=== PATIENT | female | born 1950 | race Caucasian/White ===

== ENCOUNTER 2017-01-05 16:43 | Emergency (ER) | payer OTHER, BC ==
--- NOTE | 2017-01-05 16:46 | PDOC ---
History of Present Illness <Verenice Rahman - Last Filed: 01/05/17 18:27> - History of Present Illness Initial Comments: 01/05/17 16:52 The patient is a 66 year old female, with a significant past medical history of TIA (1999, on Plavix), anxiety (on ativan), and hypercholesterolemia, who presents to the emergency department with pain to her left hand/wrist s/p mechanical fall and excessive bleeding from her mouth s/p oral surgery this afternoon. The patient states she tripped and fell earlier today. She reports reaching out to stop her fall, however, landed on her face, causing her to lose her two front teeth. The patient states she injured her left wrist during the fall, but was sent immediately for oral surgery to have numerous stitches placed into her mouth. She reports going to her PCP, Dr. Corcoran, after her oral surgery to have her hand evaluated, but she was referred to the ED to have xrays done. The patient reports her pain is a 6/10 in severity. She denies any other complaints. She denies chest pain, shortness of breath, headache and dizziness. She denies fever, chills, nausea, vomit, diarrhea and constipation. She denies dysuria, frequency, urgency and hematuria. Allergies: NKDA PCP - Dr. Jeison Corcoran <Kari Ding - Last Filed: 01/05/17 19:02> <Arcelia Hernandez - Last Filed: 01/05/17 19:17> - General Chief Complaint: Injury Stated Complaint: FALL Time Seen by Provider: 01/05/17 16:45 Past History - Past Medical History HTN: Yes - Psycho/Social/Smoking Cessation Hx Anxiety: No Suicidal Ideation: No Smoking History: Never smoked Have you smoked in the past 12 months: No Hx Alcohol Use: No Drug/Substance Use Hx: No Substance Use Type: None <Verenice Rahman - Last Filed: 01/05/17 18:27> <Kari Ding - Last Filed: 01/05/17 19:02> <Arcelia Hernandez - Last Filed: 01/05/17 19:17> - Past Medical History Allergies/Adverse Reactions: Allergies Allergy/AdvReac Type Severity Reaction Status Date / Time No Known Allergies Allergy Verified 01/05/17 17:10 Home Medications: Ambulatory Orders Cholecalciferol (Vitamin D3) [Vitamin D] 5,000 unit PO DAILY 02/16/16 Lorazepam [Ativan] 0.5 mg PO PRN 02/16/16 Metoprolol Succinate [Toprol Xl] 50 mg PO HS 02/16/16 Review of Systems - Review of Systems Able to Perform ROS?: Yes Comments:: 01/05/17 16:56 GENERAL/CONSTITUTIONAL: No fever or chills. No weakness. HEAD, EYES, EARS, NOSE AND THROAT: (+) oral bleeding from suture site. No change in vision. No ear pain or discharge. No sore throat. CARDIOVASCULAR: No chest pain or shortness of breath. RESPIRATORY: No cough, wheezing, or hemoptysis. GASTROINTESTINAL: No nausea, vomiting, diarrhea or constipation. GENITOURINARY: No dysuria, frequency, or change in urination. MUSCULOSKELETAL: (+) Left hand and wrist pain. No muscle swelling or pain. No neck or back pain. SKIN: No rash NEUROLOGIC: No headache, vertigo, loss of consciousness, or change in strength/ sensation. ENDOCRINE: No increased thirst. No abnormal weight change. HEMATOLOGIC/LYMPHATIC: No anemia, easy bleeding, or history of blood clots. ALLERGIC/IMMUNOLOGIC: No hives or skin allergy. <Kari Ding - Last Filed: 01/05/17 19:02> *Physical Exam - Physical Exam Comments: GENERAL: Awake, alert, and fully oriented, in no acute distress HEAD: +Bleeding from teeth extraction sites. +Laceration to the mucosal surface of the upper lip, with sutures in place. EYES: PERRLA, EOMI, sclera anicteric, conjunctiva clear ENT: Auricles normal inspection, hearing grossly normal, nares patent, oropharynx clear without exudates. Moist mucosa NECK: Normal ROM, supple, no lymphadenopathy, JVD, or masses LUNGS: Breath sounds equal, clear to auscultation bilaterally. No wheezes, and no crackles HEART: Regular rate and rhythm, normal S1 and S2, no murmurs, rubs or gallops ABDOMEN: Soft, nontender, normoactive bowel sounds. No guarding, no rebound. No masses EXTREMITIES: L hand with ecchymosis and tenderness over the 4th and 5th metacarpals. Remainder of extremities with normal range of motion, no edema. No clubbing or cyanosis. No cords, erythema, or tenderness NEUROLOGICAL: Cranial nerves II through XII grossly intact. Normal speech, normal gait SKIN: Warm, Dry, normal turgor, no rashes or lesions noted. <Verenice Rahman - Last Filed: 01/05/17 18:27> - Vital Signs Last Vital Signs Temp Pulse Resp BP Pulse Ox 98.5 F 76 20 106/74 100 01/05/17 16:45 01/05/17 18:13 01/05/17 18:13 01/05/17 18:29 01/05/17 18:13 <Arcelia Hernandez - Last Filed: 01/05/17 19:17> ED Treatment Course - RADIOLOGY Radiograph Interpretation: 01/05/17 19:02 Left RAD/Hand Xray was read by Dr. Sabillon at 18:38 Impression Osteoarthritic changes, without gross evidence of a fracture or dislocation <Kari Ding - Last Filed: 01/05/17 19:02> - Medications Given in the ED: ED Medications Discontinued Medications Generic Name Dose Route Start Last Admin Trade Name Jose J PRN Reason Stop Dose Admin Ondansetron HCl 4 mg 01/05/17 18:22 01/05/17 19:01 Zofran Injection IVPUSH 01/05/17 18:23 Not Given ONCE ONE Ondansetron HCl 4 mg 01/05/17 18:09 01/05/17 18:28 Zofran Injection IVPUSH 01/05/17 18:10 4 mg ONCE ONE Administration Tramadol HCl 50 mg 01/05/17 16:54 01/05/17 17:01 Ultram - PO 01/05/17 16:55 50 mg ONCE ONE Administration <Arcelia Hernandez - Last Filed: 01/05/17 19:17> Medical Decision Making - Medical Decision Making 01/05/17 18:23 Late entry. At bedside to reassess. Bleeding has subsided significantly, but patient is now with a large clot at the site of the tooth extractions. We discussed leaving it in place, which may dislodge if she attempts to eat anything, or removing it and placing surgicel, then pressure to stop the bleeding. Patient opted to remove clot and place surgicel. As I was preparing to do this, patient suddenly became pale, diaphoretic, and nauseous. Vomited blood-tinged phlegm (consistent with having just swallowed blood from her teeth) , small amount. IV was placed, zofran and IVF were started. Initial BP mildly hypotensive 100s/60s. Improved rapidly, BP currently 130s/90s. I was subsequently able to remove the large clot and replace with surgicel, place gauze. Patient currently biting on gauze for pressure. Will cont to monitor. <Verenice Rahman - Last Filed: 01/05/17 18:27> - Medical Decision Making 01/05/17 17:10 Dr. Corcoran was called upon patient arrival for a doctor to doctor consult regarding this patient. The patient's history and case was discussed. <Kari Ding - Last Filed: 01/05/17 19:02> *DC/Admit/Observation/Transfer - Discharge Dispostion Admit: No <Verenice Rahman - Last Filed: 01/05/17 18:27> - Attestations Scribe Attestion: 01/05/17 16:57 Documentation prepared by Kari Ding, acting as medical receptionist for Verenice Rahman MD <Kari Ding - Last Filed: 01/05/17 19:02> <Arcelia Hernandez - Last Filed: 01/05/17 19:17> Diagnosis at time of Disposition: Surgical wound hemorrhage after dental procedure Traumatic hematoma of left hand Qualifiers: Encounter type: initial encounter Qualified Code(s): S60.222A - Contusion of left hand, initial encounter - Discharge Dispostion Condition at time of disposition: Stable - Patient Instructions Printed Discharge Instructions: DI on Tooth Extraction, DI for Post-Surgical Bleeding Additional Instructions: LEAVE THE SURGICEL IN PLACE. DO NOT ATTEMPT TO REMOVE IT. IF THE BLEEDING STARTS AGAIN, PLACE A ROLLED PIECE OF GAUZE AND BITE DOWN ON IT. IF THIS DOES NOT WORK, RETURN TO THE EMERGENCY DEPARTMENT IMMEDIATELY FOR TREATMENT.
[2017-01-05] MEDS ORDERED: traMADol HCL 50 MG TABLET PO ONE (16:54)
[2017-01-05] MEDS ORDERED: traMADol HCL 50 MG TABLET ONE (17:03)
[2017-01-05 17:05] VITALS: TEMP 98.5; BMI 25.1
[2017-01-05] MEDS ORDERED: ONDANSETRON 4 MG/2 ML VIAL IVPUSH ONE ×2 (18:09→18:22)
[2017-01-05] MEDS ORDERED: ONDANSETRON 4 MG/2 ML VIAL ONE (18:09)
[2017-01-05 18:19] VITALS: PULSE 76
[2017-01-05] MEDS ORDERED: SODIUM CHLORIDE 1,000 ML IV STA (18:22)
[2017-01-05 18:31] VITALS: BP 106/74
[2017-01-05] MEDS ORDERED: OXYCODONE/APAP 5/325MG COMBO TABLET PO ONE (19:56)
--- NOTE | 2017-01-05 19:57 | PDOC ---
*Physical Exam - Vital Signs Last Vital Signs Temp Pulse Resp BP Pulse Ox 98.5 F 76 20 106/74 100 01/05/17 16:45 01/05/17 18:13 01/05/17 18:13 01/05/17 18:29 01/05/17 18:13 ED Treatment Course - Medications Given in the ED: ED Medications Discontinued Medications Generic Name Dose Route Start Last Admin Trade Name Jose J PRN Reason Stop Dose Admin Sodium Chloride 1,000 mls @ 1,000 mls/hr 01/05/17 18:22 01/05/17 18:29 Normal Saline - IV 01/05/17 19:21 1,000 mls/hr ASDIR STA Administration Ondansetron HCl 4 mg 01/05/17 18:22 01/05/17 19:01 Zofran Injection IVPUSH 01/05/17 18:23 Not Given ONCE ONE Ondansetron HCl 4 mg 01/05/17 18:09 01/05/17 18:28 Zofran Injection IVPUSH 01/05/17 18:10 4 mg ONCE ONE Administration Tramadol HCl 50 mg 01/05/17 16:54 01/05/17 17:01 Ultram - PO 01/05/17 16:55 50 mg ONCE ONE Administration Progress Note - Progress Note Progress Note: Care of this patient received from Dr. Rahman. Patient was seen here with bleeding from dental extraction site; patient had traumatic injuries of her bilateral central incisors with subsequent extractions by her oral surgeon. Patient is currently taking Plavix and extraction sites had subsequent significant bleeding. Sites were packed with Surgicel on arrival here in the emergency room and, with direct pressure to the site, hemostasis was achieved. Patient had near syncopal episode here and received 1 L of normal saline IV After liter of normal saline completed, patient reassessed. She is feeling better without significant lightheadedness or other new symptoms. Areas of central incisor extractions remain without evidence of recurrent bleeding. The patient has a prescription for oxycodone, written by her oral surgeon. Patient states that she is still having significant pain in the areas of extraction; previous dose of tramadol given here was insufficient for pain relief. The patient be given 1 tablet of Percocet 5/325 by mouth now. She will be discharged in the company of her family. She has been instructed to maintain pressure to the area of her central incisor extraction sites if she has any recurrent bleeding. She should avoid solid foods and toothbrushing or other manipulation of the extraction sites. She has follow-up appointment with her oral surgeon on Wednesday, January 08. She should return to the emergency room and she has any further recurrent bleeding. *DC/Admit/Observation/Transfer Diagnosis at time of Disposition: Surgical wound hemorrhage after dental procedure Traumatic hematoma of left hand Qualifiers: Encounter type: initial encounter Qualified Code(s): S60.222A - Contusion of left hand, initial encounter - Discharge Dispostion Disposition: HOME Condition at time of disposition: Stable - Referrals - Patient Instructions Printed Discharge Instructions: DI on Tooth Extraction, DI for Post-Surgical Bleeding Additional Instructions: LEAVE THE SURGICEL IN PLACE. DO NOT ATTEMPT TO REMOVE IT. IF THE BLEEDING STARTS AGAIN, PLACE A ROLLED PIECE OF GAUZE AND BITE DOWN ON IT. IF THIS DOES NOT WORK, RETURN TO THE EMERGENCY DEPARTMENT IMMEDIATELY FOR TREATMENT. - Post Discharge Activity
[2017-01-05] MEDS ORDERED: OXYCODONE/APAP 5/325MG COMBO TABLET ONE (20:00)
== END 2017-01-05 20:08 | disposition home or self-care (01) ==
LOC: FER 16:43
PROC: 3E033GC Introduction of Other Therapeutic Substance into Peripheral Vein, Percutaneous Approach (ICD-10-PCS; principal; 2017-01-05)
PROC: 3E0337Z Introduction of Electrolytic and Water Balance Substance into Peripheral Vein, Percutaneous Approach (ICD-10-PCS; 2017-01-05)
DX: K91.840 Postprocedural hemorrhage of a digestive system organ or structure following a digestive system procedure (principal); S60.222A Contusion of left hand, initial encounter; Y83.8 Other surgical procedures as the cause of abnormal reaction of the patient, or of later complication, without mention of misadventure at the time of the procedure; Y93.9 Activity, unspecified; W18.30XA Fall on same level, unspecified, initial encounter; Y92.89 Other specified places as the place of occurrence of the external cause; Z86.73 Personal history of transient ischemic attack (TIA), and cerebral infarction without residual deficits; Z79.01 Long term (current) use of anticoagulants; F41.9 Anxiety disorder, unspecified; E78.00 Pure hypercholesterolemia, unspecified
CPT/HCPCS: 73130-TC-LT; 96361; 96374; 96376; 99283-25